=== PATIENT | male | born 1955 ===

== ENCOUNTER 2022-02-11 08:00 | Inpatient (IN) | payer OTHER ==
[2022-02-11] MEDS ORDERED: ZESTRIL10 M1 (09:11)
[2022-02-11] MEDS ORDERED: ADULT LOW DOSE81 M1 (09:11)
[2022-02-11] MEDS ORDERED: GLUMETZA500 MG (09:12)
[2022-02-11] MEDS ORDERED: ATORVASTATIN CA20 MG (09:12)
[2022-02-11] MEDS ORDERED: COENZYME Q10100 M2 (09:12)
[2022-02-17] MEDS ORDERED: FOLIC ACID1 MG (10:29)
[2022-02-17] MEDS ORDERED: DAFLONEX-XL 11300 MG (10:29)
[2022-02-17] MEDS ORDERED: MAXIMUM D3325 MCG (10:29)
== END 2022-02-18 16:37 | DRG 470 ==
LOC: SURG 02-16 07:00 → O/R 02-16 07:07 → SURG 02-16 07:07
PROVIDERS: Surgery; ADMIT Orthopaedic Surgery; ATTEND Orthopaedic Surgery
PROC: 0T9B80Z Drainage of Bladder with Drainage Device, Via Natural or Artificial Opening Endoscopic (ICD-10-PCS; 2022-02-16)
PROC: 0SRC0J9 Replacement of Right Knee Joint with Synthetic Substitute, Cemented, Open Approach (ICD-10-PCS; principal; 2022-02-16 07:00)
PROC: 0TJB8ZZ Inspection of Bladder, Via Natural or Artificial Opening Endoscopic (ICD-10-PCS; 2022-02-16 07:00)
DX: M17.11 Unilateral primary osteoarthritis, right knee (principal); D62 Acute posthemorrhagic anemia; M85.661 Other cyst of bone, right lower leg; N35.819 Other urethral stricture, male, unspecified site; N40.1 Benign prostatic hyperplasia with lower urinary tract symptoms; I10 Essential (primary) hypertension; Z20.822 Contact with and (suspected) exposure to COVID-19; Z96.651 Presence of right artificial knee joint

== ENCOUNTER 2023-04-11 05:30 | Inpatient (IN) | payer OTHER ==
[2023-04-07 09:08] LABS: HEMATOCRIT 39.3 % (39.0-48.0); HEMOGLOBIN 13.1 g/dL (13-16.00); MEAN CELL VOLUME 78.3 fL (80.0-100.00); MEAN CORPUSCULAR HEMOGLOBIN 26.2 pg (27.00-32.0); MEAN CORPUSCULAR HGB CONC 33.4 g/dl (32.0-36.0); PLATELET COUNT 166 K/uL (150-450); RED BLOOD COUNT 5.02 M/uL (4.00-6.00); RED CELL DISTRIBUTION WIDTH 16.5 % (11.5-14.5)
[2023-04-07 09:13] LABS: URINE APPEARANCE Clear; URINE BILIRRUBIN Negative (NEGATIVE); URINE BLOOD Large; URINE COLOR Yellow; URINE GLUCOSE Negative (NEGATIVE); URINE LEUKOCYTE Small; URINE NITRATE Negative; URINE PROTEIN Trace (NEGATIVE); URINE UROBILINOGEN 0.2 E.U./dl
[2023-04-07 09:14] LABS: URINE BACTERIA 520.2 uL (0.0-1933); URINE EPITHELIAL CELLS 2.1 uL (0.0-38.8); URINE RBC 452.8 uL (0.0-20.8); URINE WBC 29.9 uL (0.0-23.2)
[2023-04-07 09:22] LABS: INR 1.05; PARTIAL THROMBOPLASTIN TIME 27.6 SECONDS (22.0-34.0)
[2023-04-07 10:44] LABS: ALBUMIN 3.6 gm/dL (3.4-5.0); BILIRUBIN TOTAL 0.71 mg/dL (0.3-1.2); CALCIUM 9.4 mg/dL (8.5-10.1); CREATININE SERUM 0.92 mg/dL (0.70-1.30); GFR 81.33; GLOBULINA 3.8 G/DL (2.4-3.5); POTASSIUM 4.32 mEq/L (3.5-5.1); TOTAL PROTEIN 7.4 gm/dL (6.4-8.2)
[~2023-04-11] VITALS: Ht 180.3 cm; Wt 99.3 kg
[~2023-04-11 05:30] MED LIST: ADULT LOW DOSE81 M1; ATORVASTATIN CA20 MG; COENZYME Q10100 M2; DAFLONEX-XL 11300 MG; FOLIC ACID1 MG; GLUMETZA500 MG; LYVISPAH10 MG PO; MAXIMUM D3325 MCG; OMEGA 3 1,0001 EACH PO; VITAMIN K100 MCG PO; ZESTRIL10 M1
[2023-04-12 07:43] LABS: HEMATOCRIT 34.7 % (39.0-48.0); HEMOGLOBIN 11.6 g/dL (13-16.00); MEAN CELL VOLUME 79.6 fL (80.0-100.00); MEAN CORPUSCULAR HEMOGLOBIN 26.5 pg (27.00-32.0); MEAN CORPUSCULAR HGB CONC 33.3 g/dl (32.0-36.0); PLATELET COUNT 150 K/uL (150-450); RED BLOOD COUNT 4.37 M/uL (4.00-6.00); RED CELL DISTRIBUTION WIDTH 16.6 % (11.5-14.5)
[2023-04-12] MEDS ORDERED: DAFLONEX-XL 11300 MG (11:04)
[2023-04-12] MEDS ORDERED: VITAMIN B-121000 MC1 (11:04)
== END 2023-04-13 18:16 | disposition home or self-care (01) | DRG 330 ==
LOC: CIR.AMB 05:30 → SURG 16:35 → SURH 04-13 14:06
PROVIDERS: ADMIT Surgery; ATTEND Surgery
PROC: 0WQF4ZZ Repair Abdominal Wall, Percutaneous Endoscopic Approach (ICD-10-PCS; 2023-04-11)
PROC: 0DN84ZZ Release Small Intestine, Percutaneous Endoscopic Approach (ICD-10-PCS; 2023-04-11)
PROC: 0DQ84ZZ Repair Small Intestine, Percutaneous Endoscopic Approach (ICD-10-PCS; principal; 2023-04-11 09:45)
DX: K43.6 Other and unspecified ventral hernia with obstruction, without gangrene (principal); K91.71 Accidental puncture and laceration of a digestive system organ or structure during a digestive system procedure; K66.0 Peritoneal adhesions (postprocedural) (postinfection)